=== PATIENT | female | born 1980 | race Two or more races ===

== ENCOUNTER 2016-06-05 21:15 | Emergency (ER) | payer OTHER ==
--- NOTE | ~2016-06-05 | CT2 ---
[facility] A Service of [facility] RADIOLOGY TEXT RESULTS PATIENT: ONEL TRAVIS LOCATION: [facility] : [birth year] UNIT #: [id number] AGE: [address]: Artemio Segovia MD SEX: F ORDER DR: [id number] [facility] [address] [place], [place] [address] [id number] E MR#: [id number] Acc #: [id number] NAME: ONEL TRAVIS : 1980 SEX: F STUDY DATE/TIME: 06/05/2016 23:08 UNIT: [facility] ROOM: STUDY DESCRIPTION: CT Abd and Pelv W Cont Attending Physician: Artemio Segovia M.D. Ordering Physician: Lauro Holt D.O. Primary Care Physician: Kayce Nice M.D. MEDICAL IMAGING REPORT This report is preliminary unless electronic signature is present EXAM CT abdomen and pelvis with contrast 06/05/2016 at 23:08 HISTORY 36-year-old female with right-side abdominal pain for 3 days. Nausea. Hypertension. COMPARISON CT abdomen and pelvis 06/22/2014. TECHNIQUE This CT examination was performed with one or more of the following radiation dose reduction techniques: automatic exposure control, adjustment of mA and/or kV according to patient size, and iterative reconstruction. PROCEDURE 5 mm axial images from the lung bases through the lesser trochanters after intravenous contrast administration. Enteric contrast not administered. Sagittal and coronal reformatted images were obtained. FINDINGS ABDOMEN: The lung bases are free of consolidation. The liver is borderline steatotic. The gallbladder, spleen, pancreas, adrenals and kidneys are within normal limits. The appendix is surgically absent. No abnormal bowel inflammation or evidence of high-grade bowel obstruction. Tiny umbilical hernia contains only fat. No adenopathy, free air or free fluid. PELVIS: Small cervical nabothian cysts. Uterus is otherwise unremarkable. Urinary bladder and rectum are normal. No pelvic adenopathy or free fluid is identified. No acute osseous abnormalities are identified. [facility] A Service of [facility] RADIOLOGY TEXT RESULTS PATIENT: ONEL TRAVIS LOCATION: [facility] #: [id number] : [birth year] UNIT #: [id number] AGE: [address]: Artemio Segovia MD SEX: F ORDER DR: 1.4 cm right ovarian cyst unchanged from 06/22/2014. IMPRESSION 1. No acute findings in the abdomen or pelvis. 2. 1.4 cm right ovarian cyst unchanged from 06/22/2014. 3. Prior appendectomy. 4. Cervical nabothian cysts. 5. Borderline hepatic steatosis. 6. Tiny umbilical hernia containing only fat. Dictated by... Angelina Arnold M.D. THIS IS AN ELECTRONICALLY VERIFIED REPORT Angelina Arnold M.D. at 06/06/2016 10:02 PM KENDY/carolin TD: 06/06/2016 06:42 JOB #: [id number] MEDICAL IMAGING REPORT COPY
[2016-06-05 16:40] LABS: URINE SOURCE CLEAN CATCH
[2016-06-05 16:47] LABS: URINE APPEARANCE CLEAR; URINE BILIRUBIN NEG (NEG); URINE BLOOD NEG (NEG); URINE COLOR YELLOW; URINE GLUCOSE NEG (NEG); URINE KETONE NEG (NEG); URINE LEUKOCYTE ESTERASE NEG (NEG); URINE NITRATE NEG (NEG); URINE PROTEIN NEG (NEG); URINE SPECIFIC GRAVITY 1.022 (1.003-1.035); URINE UROBILINOGEN 0.2 MG/DL (NEG)
[2016-06-05 16:49] LABS: BASOPHIL# 0.1 X10e3 (0-0.3); BASOPHIL% 0.9 % (0-2.5); EOSINOPHIL# 0.2 X10e3 (0-0.7); EOSINOPHIL% 1.6 % (0.0-7.0); HEMATOCRIT 43.2 % (35.0-45.0); HEMOGLOBIN 14.6 gm/dL (12.0-16.0); LYMPHOCYTE# 3.4 X10e3 (1.0-3.5); LYMPHOCYTE% 30.1 % (17.0-45.0); MEAN CELL VOLUME 88.6 FL (83-96); MEAN CORPUSCULAR HEMOGLOBIN 29.9 PG (28-34); MEAN CORPUSCULAR HGB CONC 33.8 g/dL (30-36); MEAN PLATELET VOLUME 8.8 FL (6.5-11.5); MONOCYTE# 0.6 X10e3 (0-1.0); MONOCYTE% 5.8 % (3.0-12.0); NEUTROPHIL# 6.9 X10e3 (1.5-7.1); NEUTROPHIL% 61.6 % (40-75); PLATELET COUNT 261 X10e3 (140-420); RED BLOOD COUNT 4.88 X10e (3.90-5.30); RED CELL DISTRIBUTION WIDTH 13.2 % (11.0-15.5); WHITE BLOOD COUNT 11.2 X10e3 (4.0-10.5)
[2016-06-05 16:50] LABS: DIFF IND NO
[2016-06-05 17:16] LABS: ALBUMIN SERUM 4.2 g/dL (3.5-5.0); ALKALINE PHOSPHATASE 65 U/L (32-92); ALT (SGPT) 17 U/L (10-40); AST (SGOT) 17 U/L (10-42); BILIRUBIN,TOTAL 0.4 mg/dL (0.2-2.0); BLOOD UREA NITROGEN 13 mg/dL (9-23); BUN/CREATININE RATIO 18.57; CALCIUM SERUM 8.9 mg/dL (8.4-10.2); CARBON DIOXIDE 26 mmol/L (22-31); CHLORIDE 102 mmol/L (100-111); CREATININE SERUM 0.7 mg/dL (0.6-1.4); GLOM FILT RATE Estimated ABOVE60 mL/min (>60); GLUCOSE FASTING 97 mg/dL (70-110); LIPASE 28 U/L (22-51); POTASSIUM 3.8 mmol/L (3.5-5.1); PROTEIN TOTAL SERUM 7.2 g/dL (6.0-8.3); SODIUM 136 mmol/L (135-145)
[2016-06-05 17:17] LABS: CULTURE INDICATED? NO
[2016-06-05 17:23] LABS: BILIRUBIN, DIRECT <0.1 mg/dL (0.0-0.2); BILIRUBIN,INDIRECT 0.3 mg/dL (0.0-0.9)
== END 2016-06-06 00:30 | disposition home or self-care (01) ==
LOC: CED 21:15
DX: R10.9 Unspecified abdominal pain (principal); I10 Essential (primary) hypertension; Z90.49 Acquired absence of other specified parts of digestive tract; Z98.890 Other specified postprocedural states; Z79.899 Other long term (current) drug therapy; Z88.5 Allergy status to narcotic agent
CPT/HCPCS: 36415; 74177; 80048; 80076; 81003; 83690; 85025; 96361; 96374; 96375; 99284; J2405; Q9967

== ENCOUNTER 2016-10-21 11:22 | Emergency (ER) | payer OTHER ==
[~2016-10-21] VITALS: Ht 162.6 cm; Wt 71.7 kg
--- NOTE | ~2016-10-21 | US98 ---
[facility] A Service of [facility] RADIOLOGY TEXT RESULTS PATIENT: ONEL TRAVIS LOCATION: [facility] : [birth year] UNIT #: [id number] AGE: [address]: Brittany Welch MD SEX: F ORDER DR: [id number] [facility] [address] [place], [place] [address] [id number] E MR#: [id number] Acc #: [id number] NAME: ONEL TRAVIS : 1980 SEX: F STUDY DATE/TIME: 10/21/2016 16:24 UNIT: [facility] ROOM: STUDY DESCRIPTION: US Pelvic Non-OB Complete Attending Physician: Brittany Welch M.D. Ordering Physician: Lauro Holt D.O. MEDICAL IMAGING REPORT This report is preliminary unless electronic signature is present EXAM Pelvic ultrasound, transabdominal and transvaginal technique, 10/21/2016 INDICATIONS 36-year-old female with yeast infection for 15 days, increasing pain symptoms for a day. TECHNIQUE Sonographic imaging of the pelvis was performed transabdominally and transvaginally for better evaluation of the adnexa and ovarian structures. COMPARISON STUDIES We have no comparisons. FINDINGS TRANSABDOMINAL IMAGING: The uterus is seen transabdominally but better characterized transvaginally. Neither ovary is seen transabdominally. TRANSVAGINAL IMAGING: The uterus measures about 8.7 x 4.3 x 5.1 cm. There are multiple nabothian cysts with varying degrees of complexity. Endometrial stripe measures about 9-10 mm, within the normal range. The left ovary demonstrates good flow at the time of the study and measures 3 cm maximum diameter. Follicles are present in the left ovary. The right ovary was not visualized. The largest nabothian cyst measures about 14 mm. IMPRESSION 1. Negative pelvic ultrasound. Incidental nabothian cysts in the cervix. Endometrial stripe measures within the normal range. 2. Left ovary unremarkable. 3. Right ovary not visualized. [facility] A Service of [facility] RADIOLOGY TEXT RESULTS PATIENT: ONEL TRAVIS LOCATION: [facility] : [birth year] UNIT #: [id number] AGE: [address]: Brittany Welch MD SEX: F ORDER DR: Dictated by... Christiano Wolff M.D. THIS IS AN ELECTRONICALLY VERIFIED REPORT Christiano Wolff M.D. at 10/22/2016 2:39 PM SAY/paris TD: 10/21/2016 23:11 JOB #: [id number] MEDICAL IMAGING REPORT Page 1 of 1 COPY
--- NOTE | ~2016-10-21 | CT2 ---
[facility] A Service of [facility] RADIOLOGY TEXT RESULTS PATIENT: ONEL TRAVIS LOCATION: [facility] : [birth year] UNIT #: [id number] AGE: [address]: Brittany Welch MD SEX: F ORDER DR: [id number] [facility] [address] [place], [place] [address] [id number] E MR#: [id number] Acc #: [id number] NAME: ONEL TRAVIS : 1980 SEX: F STUDY DATE/TIME: 10/21/2016 15:12 UNIT: [facility] ROOM: STUDY DESCRIPTION: CT Abd and Pelv W Cont Attending Physician: Brittany Welch M.D. Ordering Physician: Lauro Holt D.O. Primary Care Physician: Lida Nice MEDICAL IMAGING REPORT This report is preliminary unless electronic signature is present EXAM CT abdomen and pelvis with contrast 10/21/2016 HISTORY 36-year-old female with lower abdominal pain and pelvic pain for [address] abdomen and pelvis 06/05/2016 TECHNIQUE Helical scan performed through the abdomen and pelvis following the administration of IV contrast. Coronal and sagittal reformatted images. This CT exam was performed with one or more of the following radiation dose reduction techniques: automatic exposure control, adjustment of mA and/or kV according to patient size, and iterative reconstruction. FINDINGS Visualized lung bases are unremarkable. The liver, spleen, pancreas, gallbladder, both adrenal glands, both kidneys are within normal limits. Abdominal aorta is normal in course and caliber without dissection. Small bowel is unremarkable without obstruction. Appendix is surgically absent. Colon unremarkable. Moderate stool burden. No free fluid or free air. Urinary bladder, uterus, adnexa are unremarkable. Nabothian cysts again noted in the region of the cervix. No free pelvic fluid. No acute bony abnormality. IMPRESSION 1. No acute abdominal or pelvic findings. 2. Appendectomy. 3. Moderate stool burden. [facility] A Service of [facility] RADIOLOGY TEXT RESULTS PATIENT: ONEL TRAVIS LOCATION: [facility] : 82 UNIT #: [id number] AGE: [address]: Brittany Welch MD SEX: F ORDER DR: 4. Cervical nabothian cysts again noted, unchanged. Dictated by... Richy Meneses M.D. THIS IS AN ELECTRONICALLY VERIFIED REPORT Richy Meneses M.D. at 10/24/2016 9:25 AM MERCED/kary TD: 10/21/2016 21:47 JOB #: [id number] MEDICAL IMAGING REPORT Page 1 of 1 COPY
[2016-10-21 12:04] LABS: URINE SOURCE CLEAN CATCH
[2016-10-21 12:08] LABS: BASOPHIL% 0.5 % (0-2.5); EOSINOPHIL# 0.1 X10e3 (0-0.7); EOSINOPHIL% 1.5 % (0.0-7.0); HEMATOCRIT 42.8 % (35.0-45.0); HEMOGLOBIN 14.6 gm/dL (12.0-16.0); LYMPHOCYTE# 2.4 X10e3 (1.0-3.5); MEAN CELL VOLUME 87.3 FL (83-96); MEAN CORPUSCULAR HEMOGLOBIN 29.8 PG (28-34); MEAN CORPUSCULAR HGB CONC 34.2 g/dL (30-36); MEAN PLATELET VOLUME 8.4 FL (6.5-11.5); MONOCYTE# 0.5 X10e3 (0-1.0); MONOCYTE% 5.6 % (3.0-12.0); NEUTROPHIL# 5.9 X10e3 (1.5-7.1); NEUTROPHIL% 65.4 % (40-75); PLATELET COUNT 233 X10e3 (140-420); RED BLOOD COUNT 4.91 X10e (3.90-5.30); RED CELL DISTRIBUTION WIDTH 13.3 % (11.0-15.5)
[2016-10-21 12:09] LABS: URINE APPEARANCE CLEAR; URINE BILIRUBIN NEG (NEG); URINE BLOOD NEG (NEG); URINE COLOR YELLOW; URINE GLUCOSE NEG (NEG); URINE KETONE NEG (NEG); URINE LEUKOCYTE ESTERASE NEG (NEG); URINE NITRATE NEG (NEG); URINE PH 7.5 (5-8); URINE PROTEIN NEG (NEG); URINE UROBILINOGEN 0.2 MG/DL (NEG)
[2016-10-21 12:09] LABS: DIFF IND NO
[2016-10-21 12:13] LABS: CULTURE INDICATED? NO
[2016-10-21 12:36] LABS: ALBUMIN SERUM 4.3 g/dL (3.5-5.0); BILIRUBIN, DIRECT 0.1 mg/dL (0.0-0.2); BILIRUBIN,INDIRECT 0.7 mg/dL (0.0-0.9); BILIRUBIN,TOTAL 0.8 mg/dL (0.2-2.0); BUN/CREATININE RATIO 21.42; CALCIUM SERUM 9.3 mg/dL (8.4-10.2); CREATININE SERUM 0.7 mg/dL (0.6-1.4); GLOM FILT RATE Estimated 112.3 mL/min (>60); POTASSIUM 4.6 mmol/L (3.5-5.1); PROTEIN TOTAL SERUM 7.3 g/dL (6.0-8.3)
[2016-10-25 14:49] LABS: CHLAMYDIA TRACH Not Detected (Not Detected); N GONOR Not Detected (Not Detected)
== END 2016-10-21 18:58 | disposition home or self-care (01) ==
LOC: CED 11:22
PROVIDERS: Emergency Medicine
DX: R10.2 Pelvic and perineal pain (principal); I10 Essential (primary) hypertension; Z98.51 Tubal ligation status; Z88.6 Allergy status to analgesic agent
CPT/HCPCS: 36415; 74177; 76856; 80048; 80076; 81003; 83690; 84703; 85025; 87491; 87591; 87808; 87905; 96374; 96375; 99284; J2270; J2405; Q9967

== ENCOUNTER 2016-11-15 15:10 | Emergency (ER) | payer OTHER ==
[~2016-11-15] VITALS: Ht 152.4 cm; Wt 73.5 kg
[2016-11-15 16:27] LABS: BASOPHIL% 0.3 % (0-2.5); EOSINOPHIL# 0.1 X10e3 (0-0.7); EOSINOPHIL% 0.8 % (0.0-7.0); HEMATOCRIT 42.4 % (35.0-45.0); HEMOGLOBIN 14.5 gm/dL (12.0-16.0); LYMPHOCYTE# 2.6 X10e3 (1.0-3.5); LYMPHOCYTE% 25.6 % (17.0-45.0); MEAN CELL VOLUME 87.9 FL (83-96); MEAN CORPUSCULAR HEMOGLOBIN 30.1 PG (28-34); MEAN CORPUSCULAR HGB CONC 34.2 g/dL (30-36); MEAN PLATELET VOLUME 8.9 FL (6.5-11.5); MONOCYTE# 0.6 X10e3 (0-1.0); MONOCYTE% 5.7 % (3.0-12.0); NEUTROPHIL# 6.8 X10e3 (1.5-7.1); NEUTROPHIL% 67.6 % (40-75); PLATELET COUNT 244 X10e3 (140-420); RED BLOOD COUNT 4.82 X10e (3.90-5.30); RED CELL DISTRIBUTION WIDTH 13.3 % (11.0-15.5)
[2016-11-15 16:34] LABS: DIFF IND NO
[2016-11-15 16:55] LABS: ALBUMIN SERUM 4.4 g/dL (3.5-5.0); BILIRUBIN, DIRECT 0.1 mg/dL (0.0-0.2); BILIRUBIN,INDIRECT 0.6 mg/dL (0.0-0.9); BILIRUBIN,TOTAL 0.7 mg/dL (0.2-2.0); BUN/CREATININE RATIO 15.71; CREATININE SERUM 0.7 mg/dL (0.6-1.4); GLOM FILT RATE Estimated 112.3 mL/min (>60); POTASSIUM 3.9 mmol/L (3.5-5.1); PROTEIN TOTAL SERUM 7.6 g/dL (6.0-8.3)
[2016-11-15 17:02] LABS: URINE SOURCE CLEAN CATCH
[2016-11-15 17:10] LABS: URINE APPEARANCE CLEAR; URINE BILIRUBIN NEG (NEG); URINE BLOOD NEG (NEG); URINE COLOR YELLOW; URINE GLUCOSE NEG (NEG); URINE KETONE TRACE (NEG); URINE LEUKOCYTE ESTERASE NEG (NEG); URINE NITRATE NEG (NEG); URINE PROTEIN NEG (NEG); URINE SPECIFIC GRAVITY 1.013 (1.003-1.035); URINE UROBILINOGEN 0.2 MG/DL (NEG)
[2016-11-15 17:21] LABS: CULTURE INDICATED? NO
== END 2016-11-15 19:04 | disposition home or self-care (01) ==
LOC: CED 15:10
PROVIDERS: Emergency Medicine
DX: R10.13 Epigastric pain (principal); R19.5 Other fecal abnormalities; R11.0 Nausea; I10 Essential (primary) hypertension; Z90.49 Acquired absence of other specified parts of digestive tract; Z98.51 Tubal ligation status
CPT/HCPCS: 36415; 80048; 80076; 81003; 82150; 83690; 84703; 85025; 96374; 96375; 99284; J2270; J2405